=== PATIENT | female | born 1960 | race Caucasian/White ===

== ENCOUNTER 2025-02-22 11:22 | Emergency (ER) | payer BC, MEDICARE, SELFPAY ==
--- NOTE | 2025-02-22 11:23 | ECG_ITS ---
Test Date: 2025-02-22 11:33:24 Measurements Intervals [place] Rate: 58 P: 40 CA: 159 QRS: 39 QRSD: 93 T: 47 QT: 409 QTc: 404 Interpretive Statements SINUS BRADYCARDIA OTHERWISE NORMAL ECG No previous ECG available for comparison Electronically Signed On 02-22-2025 12:12:02 CDT by Lee Chau M.D.
[2025-02-22 11:27] VITALS: PULSE 72; RESP 24; O2SAT 99
[2025-02-22 11:39] VITALS: BP 150/63; PULSE 70; RESP 18; TEMP 35.5; O2SAT 98
--- NOTE | 2025-02-22 11:49 | ED.SOB ---
HPI - SOB/Dyspnea General Chief Complaint: Shortness of Breath/Dyspnea Stated Complaint: Trouble Breathing Time Seen by Provider: 02/22/25 11:25 Source: patient and RN notes reviewed Mode of arrival: ambulatory Limitations: no limitations History of Present Illness HPI Narrative: 64-year-old female presents to the [facility] complaining of shortness of breath, chest tightness, runny nose, and dizziness since this morning. Patient is said symptoms started after she [place] because she is highly sensitive to fragrances and the air freshner went off off in the bathroom while she was in there. Pain to then use your inhaler that she uses as needed for her asthma history. 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 Patient says she does not feel as short of breath as she did after using her inhaler however she still reports some dizziness and states the chest tightness has subsided. Patient also reported feeling nauseous but denies any vomiting. Patient denies any fevers, body aches, chills diarrhea, jaw pain, left arm pain, or any other symptoms. Patient has a history of diabetes. She denies any cardiac history. Related Data Home Medications ?Medication ?Instructions ?Recorded ?Confirmed ?Last Taken ?Type albuterol sulfate 90 mcg/actuation inhalation 02/22/25 Unknown History breath activated powder inhaler (ProAir RespiClick) linaclotide 72 mcg capsule mcg 02/22/25 Unknown History (Linzess) montelukast 10 mg tablet mg 02/22/25 Unknown History spironolactone 100 mg tablet mg 02/22/25 Unknown History thyroid (pork) 30 mg tablet (PRODUCT ADVISOR mg 02/22/25 Unknown History Thyroid) tirzepatide 10 mg/0.5 mL mg subcut 02/22/25 Unknown History subcutaneous pen injector (Jakubundavidro) Allergies Allergy/AdvReac Type Severity Reaction Status Date / Time Sulfa (Sulfonamide Allergy Intermediate Rash Verified 02/22/25 11:44 Antibiotics) Review of Systems Review of Systems: CONSTITUTIONAL: Denies fever, chills, or sweats. EYES: Denies visual changes, redness, or discharge. ENT: Denies rhinorrhea, sore throat, or otalgia. Positive for congestion. CARDIOVASCULAR: Denies chest pain with exertion, palpitations, lightheadedness, or edema. Positive for chest tightness and dizziness. RESPIRATORY: Denies cough. Positive for dyspnea. GASTROINTESTINAL: Denies abdominal pain, nausea, vomiting, or diarrhea. GENITOURINARY: Denies dysuria or hematuria. SKIN: Denies rash or itching. MUSCULOSKELETAL: Denies back pain, joint pain, or myalgia. NEUROLOGIC: Denies headache, numbness, or weakness. PSYCHIATRIC: Denies anxiety or depression. All other systems reviewed are negative, except as documented in HPI. PMFSH Comments At the time of my signature, I reviewed and agree with the nursing past medical, surgical, social, and family history. There is no relevant family history pertinent to the patient complaint. Exam Narrative: GENERAL: This is a well-nourished, well-developed adult, in no apparent distress. They are non ill-appearing, nontoxic appearing. HEAD: normocephalic, atraumatic. EYES: Sclera clear/white. Conjunctiva normal. Vision is grossly intact. Extraocular movements intact EARS: External ears normal, auditory canals clear and without drainage, TMs normal without perforation. Hearing grossly intact. NOSE: External nose normal with no obvious nasal discharge, nasal turbinates without redness or swelling, no rhinorrhea. THROAT: Mucous membranes moist, posterior pharynx clear, without erythema or swelling. Uvula midline. Postnasal drip present. NECK: Neck supple, non-tender without lymphadenopathy, masses or thyromegaly. CARDIOVASCULAR: Regular rate and rhythm without murmurs, gallops, or rubs. Respiratory rate normal, respiratory effort nonlabored, no respiratory distress RESPIRATORY: Clear to auscultation. Breath sounds equal bilaterally. No wheezes, rales, or rhonchi. SKIN: warm, Dry, intact with no suspicious lesions or rash, good texture and turgor. NEURO: awake, alert, and oriented to person, place and time. There were no obvious focal neurologic abnormalities. EXTREMITIES: No joint tenderness, effusion, or edema noted. Course Course Emergency Course: Portions of this record may have been created with voice recognition software Level of Care: Express Care Visit Vital Signs Vital signs: Vital Signs Pulse Rate 72 02/22/25 11:27 Respiratory Rate 24 H 02/22/25 11:27 Pulse Oximetry 99 02/22/25 11:27 Oxygen Delivery Room Air 02/22/25 11:27 Temperature 96 F L 02/22/25 11:39 Pulse Rate 70 02/22/25 11:39 Respiratory Rate 20 02/22/25 11:52 Blood Pressure 150/63 H 02/22/25 11:39 Pulse Oximetry 99 02/22/25 11:52 Oxygen Delivery Room Air 02/22/25 11:52 Reviewed Transfer Transfered to: [place] Transportation: Other (Private vehicle) Transfer rationale: Patient requires higher level care, shortness of breath, chest tightness, possible lab work further assessment. Accepting physician: Dr. Howell MDM - SOB/Dyspnea MDM Narrative Medical decision making narrative: EKG is sinus bradycardia without ischemic findings. Lungs are clear to auscultation. No Evidence of infection on exam. Vital signs hemodynamically stable. Patient in no apparent distress or respiratory distress. O2 saturations are normal. Patient reports still feeling short of breath with dizziness. Patient no longer feels chest tightness. Patient says she is highly sensitive to fragrances service a reaction to the air fresh [place] or [place], panic attack, other underlying cardiopulmonary process. Given patient's symptoms, it is recommend the patient seek a higher level care and proceed immediately to the emergency department. Patient is agreeable to go to [place] [facility]. Called over to [place] [facility] and spoke to Dr. Howell who is aware this patient and accepted the patient for transfer. Offered patient EMS and she declined stating she will drive herself you have a private vehicle. Patient is hemodynamically stable to transfer herself to the ER via private vehicle. Patient advised to remain NPO proceed immediately to the ER. Differential Diagnosis Differential diagnosis: Likely congestive heart failure, pulmonary embolism and other (ACS, atypical chest pain,, asthma exacerbation, allergic reaction, panic attack, upper respiratory infection) ECG Data EKG #1: ECG completion date: 02/22/25 ECG completion time: 11:33 Prior ECG tracings: not available for review EKG Interpretation: bradycardia, sinus rhythm, no ectopy, no ST changes, normal QRS, normal QT, NL axis and other (Nonspecific T-wave abnormality in V1.) Critical Care Time Critical Care Time Critical Care Time: No Discharge Plan Discharge Clinical Impression: Shortness of breath Patient Disposition: Acute Care Hospital Condition: Stable Patient Language: [place] Citizen Prescriptions: No Action spironolactone 100 mg tablet montelukast 10 mg tablet thyroid (pork) [PRODUCT ADVISOR Thyroid] 30 mg tablet ProAir RespiClick 90 mcg/actuation aerosol powdr breath activated INHALATION Linzess 72 mcg capsule Mounjaro 10 mg/0.5 mL pen injector SUBCUT Follow-up/Referrals: PHYSICIAN,DISPATCHER [facility]IEF [facility] [Primary Care Provider, Internal Medicine] Time of Disposition: 11:57
[2025-02-22 11:52] VITALS: RESP 20; O2SAT 99
== END 2025-02-22 11:52 | disposition short-term general hospital (02) ==
DX: R06.02 Shortness of breath (principal); J45.909 Unspecified asthma, uncomplicated; M79.7 Fibromyalgia; E11.9 Type 2 diabetes mellitus without complications; Z79.85 Long-term (current) use of injectable non-insulin antidiabetic drugs; E03.9 Hypothyroidism, unspecified
CPT/HCPCS: 93005; 99203; G0463